=== PATIENT | female | born 1950 | race African-American/Black ===

== ENCOUNTER 2017-04-14 15:31 | Day surgery (SDC) | payer BC ==
--- NOTE | ~2017-04-14 | OP ---
Record Of Operation [facility] [address] [place]. [address] NAME: YARON KENNY : 54 STATUS : REG [facility]#: [id number] AGE: 66 ADM/REG DATE : 04/14/17 MR#: [id number] REPORT SERV DATE: 04/14/17 DICTATED BY: DRE MA DATE: 04/14/17 REPORT STATUS : Draft TRANSCRIBED BY: MODL DATE: 04/14/17 DATE OF PROCEDURE: 04/14/2017 TITLE OF OPERATION: Cystourethroscopy; right retrograde pyelogram; placement of 6 x 22 right ureteral stent. 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 INDICATIONS: Ms. 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 She was found to have chronic kidney disease with obstruction of her right kidney and hydronephrosis. She is here for stent placement to preserve renal function. ANESTHESIA: General. COMPLICATIONS: None. IMPLANTS: 6 x 22 right [place] stent without tether. NARRATIVE: The patient was brought to the operating room, identified by a wristband. General anesthesia was induced, and Ancef was given for preoperative antibiotics. She was placed in the dorsal lithotomy position, prepped and draped in a sterile fashion. A cystoscope was placed into her urethra and into her bladder. The bladder was normal. There were no tumors or other abnormalities. The right ureteral orifice was identified and cannulated with a Sensor wire. A 5-[place] open-ended catheter was placed over the wire into the distal ureter. The wire was removed. A retrograde pyelogram was shot, which demonstrated kinking of the ureter near the aortic bifurcation in the location of her sarcoma. A wire was advanced up past this area into the renal pelvis. Retrograde pyelogram was again shot opacifying the collecting system. There was hydronephrosis. A 6 x 22 ureteral stent was placed in a standard fashion. The proximal coil was in the midpole calyx; the distal coil was in the bladder. The bladder was drained. The patient was awoken from anesthesia and transferred to the recovery room in stable condition. I will check on her in a month to see how she is doing with the stent. We will plan on changing her stent out in three to four months. ED/ANJALI Dre Ma MD / [id number] Record Of Operation [address] [address] NAME: YARON KENNY : 54 STATUS : REG [facility] PAT#: [id number] AGE: 66 ADM/REG DATE : 04/14/17 MR#: [id number] REPORT SERV DATE: 04/14/17 DICTATED BY: DRE MA DATE: 04/14/17 REPORT STATUS : Draft TRANSCRIBED BY: ANJALI DATE: 04/14/17 CC: MD Perla Self M.D.
[2017-04-14 09:59] LABS: BASOPHILS 0.2 %; BASOPHILS ABSOLUTE 0.01 10/3/uL (0.0-0.16); EOSINOPHILS 2.3 %; EOSINOPHILS ABSOLUTE 0.13 10/3/uL (0.0-0.53); HEMATOCRIT 35.9 % (36.0-48.0); HEMOGLOBIN 11.5 g/dL (12.0-16.0); IMMATURE GRANULOCYTES 0.2 %; IMMATURE GRANULOCYTES ABSOLUTE 0.01 10/3/uL (0.0-0.11); LYMPHOCYTES 22.4 %; LYMPHOCYTES ABSOLUTE 1.25 10/3/uL (0.67-4.30); MANUAL DIFF NO %; MEAN CORPUSCULAR HEMOGLOB 26.6 pg (26.0-34.0); MEAN CORPUSCULAR VOLUME 82.9 fL (80-100); MEAN PLATELET VOLUME 9.5 fL (9.2-13.0); MONOCYTES 6.1 %; MONOCYTES ABSOLUTE 0.34 10/3/uL (0.21-1.20); NEUTROPHILS 68.8 %; NEUTROPHILS ABSOLUTE 3.85 10/3/uL (2.02-8.40); PLATELET COUNT 296 10/3/uL (150-400); RED CELL COUNT 4.33 10/6/uL (4.0-5.6); WHITE BLOOD CELLS 5.6 10/3/uL (4.5-10.5)
[2017-04-14 10:01] LABS: ASCORBIC ACID (UR NOT ORDER) NEG (NEG); BILIRUBIN, URINE NEGATIVE (NEG); KETONE, URINE NEGATIVE (NEG); LEUKOCYTE ESTERASE(NOT OR NEG (NEG); WBC (NOT ORDERED) (RFLEX) 1 (0-5)
[2017-04-14 10:12] LABS: BUN (BLOOD UREA NITROGEN) 34 MG/DL (6-23); CALCIUM, SERUM 9.6 MG/DL (8.5-10.4); CHLORIDE, SERUM 110 MMOL/L (96-112); CO2 (CARBON DIOXIDE) 26 MMOL/L (24-34); CREATININE 1.65 MG/DL (0.55-1.02); GFR AFRICAN AMERICAN 38 ML/MIN (>=60); GFR NON AFRICAN AMERICAN 32 ML/MIN (>=60); GLUCOSE, SERUM 117 MG/DL (60-99); POTASSIUM, SERUM 4.2 MMOL/L (3.5-5.3); SODIUM, SERUM 143 MMOL/L (135-148)
[~2017-04-14 15:31] MED LIST: AMARYL1 MG PO; CRESTOR5 MG PO; DIOV160 PO; DSS PO; NORCO1 TA1 PO; VITAMIN D2000 UNIT PO; ZANTAC150 MG PO
[2017-07-08] MEDS ORDERED: ZOFRAN8 PO (15:08)
[2017-07-08] MEDS ORDERED: PR25 PO (15:09)
== END 2017-04-14 23:59 | disposition home or self-care (01) ==
LOC: SDC 15:31
PROVIDERS: Urology
PROC: 0WHR8YZ Insertion of Other Device into Genitourinary Tract, Via Natural or Artificial Opening Endoscopic (ICD-10-PCS; 2017-04-14)
PROC: BT1DYZZ Fluoroscopy of Right Kidney, Ureter and Bladder using Other Contrast (ICD-10-PCS; 2017-04-14)
PROC: 0T768DZ Dilation of Right Ureter with Intraluminal Device, Via Natural or Artificial Opening Endoscopic (ICD-10-PCS; principal; 2017-04-14 10:45)
DX: N13.30 Unspecified hydronephrosis (principal); I12.9 Hypertensive chronic kidney disease with stage 1 through stage 4 chronic kidney disease, or unspecified chronic kidney disease; E11.22 Type 2 diabetes mellitus with diabetic chronic kidney disease; N18.9 Chronic kidney disease, unspecified; K21.9 Gastro-esophageal reflux disease without esophagitis; Z88.1 Allergy status to other antibiotic agents; Z88.8 Allergy status to other drugs, medicaments and biological substances; Z90.710 Acquired absence of both cervix and uterus
CPT/HCPCS: 74420; 80048; 81001; 82962; 85025; 93005; A9270-GY; C1758; C2617; J0330; J0690; J2405; J3010; Q9967